=== PATIENT | male | born 1985 ===

== ENCOUNTER 2018-04-18 13:54 | Emergency (ER) | payer MEDICAID, OTHER ==
[2018-04-18 13:57] VITALS: BMI 33.4
[2018-04-18 13:58] VITALS: BP 124/79; PULSE 79; RESP 20; TEMP 98.7; O2SAT 99
--- NOTE | 2018-04-18 14:38 | ED PDOC ---
Upper Extremity Pain/Injury Time Seen by Provider: 04/18/18 14:06 Chief Complaint (Nursing): Trauma Chief Complaint (Provider): finger injury History Per: Patient History/Exam Limitations: no limitations Onset/Duration Of Symptoms: Mins Current Symptoms Are (Timing): Still Present Additional Complaint(s): 32 y/o right hand dominant male presents to ED with crush injury to right index finger. Patient accidentally slammed trunk door on his finger about 1 hour prior to arrival. He sustained minor lacerations to finger and has throbbing pain. No numbness or tingling to affected area. Patient not sure of last tetanus. PMD: None Past Medical History Reviewed: Historical Data, Nursing Documentation, Vital Signs Vital Signs: Last Vital Signs Temp 98.7 F 04/18/18 13:56 Pulse 79 04/18/18 13:56 Resp 20 04/18/18 13:56 BP 124/79 04/18/18 13:56 Pulse Ox 99 04/18/18 13:56 - Medical History PMH: No Chronic Diseases - Surgical History Surgical History: No Surg Hx - Family History Family History: States: No Known Family Hx - Living Arrangements Living Arrangements: With Family - Social History Current smoker - smoking cessation education provided: No Alcohol: None Drugs: Denies - Immunization History Hx Tetanus Toxoid Vaccination: No (not sure of last booster) - Home Medications Home Medications: Ambulatory Orders Medication Instructions Recorded Cyclobenzaprine [Cyclobenzaprine 10 mg PO TID #30 tab 03/01/16 HCl] Ibuprofen [Motrin Ib] 800 mg PO Q6 PRN 03/01/16 Ibuprofen [Motrin Tab] 800 mg PO BID #30 tab 03/01/16 traMADol [Ultram] 50 mg PO Q8 #20 tab 03/01/16 Cephalexin [Keflex] 500 mg PO TID #21 capsule 04/18/18 Ibuprofen [Motrin] 600 mg PO Q6 PRN #15 tab 04/18/18 - Allergies Allergies/Adverse Reactions: Allergies Allergy/AdvReac Type Severity Reaction Status Date / Time No Known Allergies Allergy Verified 03/01/16 19:20 Review of Systems ROS Statement: Except As Marked, All Systems Reviewed And Found Negative Musculoskeletal: Positive for: Hand Pain (right index finger laceration ) Physical Exam - Reviewed Nursing Documentation Reviewed: Yes Vital Signs Reviewed: Yes - Physical Exam Appears: Positive for: Well, Non-toxic, No Acute Distress Head Exam: Positive for: ATRAUMATIC Skin: Positive for: Normal Color. Negative for: Rash Eye Exam: Positive for: Normal appearance Neck: Positive for: Normal Cardiovascular/Chest: Positive for: Regular Rate, Rhythm Respiratory: Positive for: Normal Breath Sounds. Negative for: Accessory Muscle Use, Respiratory Distress Extremity: Positive for: Normal ROM (Full ROM of affected digit), Other ( Superficial lacerations to the dorsal and palmar aspects of right index finger with no active bleeding. Subungual hematoma noted to 25% fingernail. no lifting of fingernail noted) Neurologic/Psych: Positive for: Alert, Oriented. Negative for: Motor/Sensory Deficits - ECG O2 Sat by Pulse Oximetry: 99 (RA) Pulse Ox Interpretation: Normal - Other Rad Right hand x-ray X-Ray: Interpreted by Me, Viewed By Me X-Ray Interpretation: no fx, no dis Medical Decision Making Medical Decision Making: Time: 1435 Impression: Crush injury to right index finger Plan: -- Adacel (10-64 yrs) 0.5 ml IM -- Motrin 600 mg PO -- Hand Right 3 Views Patient aware of x-ray results. All questions answered. Lacerations are very superficial, no sutures indicated. Wounds were cleansed with normal saline and Betadine, bacitracin gauze wrap applied. Patient given prescriptions for Keflex and Motrin and was advised to follow-up with hand specialist, referral given Scribe Attestation: Documented by Carlos Klein, acting as a scribe for Destiny Pineda PA-C. Provider Scribe Attestation: All medical record entries made by the Scribe were at my direction and personally dictated by me. I have reviewed the chart and agree that the record accurately reflects my personal performance of the history, physical exam, medical decision making, and the department course for this patient. I have also personally directed, reviewed, and agree with the discharge instructions and disposition. Disposition - Clinical Impression Clinical Impression: Crush injury to finger, Requires a booster tetanus - Patient ED Disposition Is Patient to be Admitted: No Counseled Patient/Family Regarding: Studies Performed, Diagnosis, Need For Followup, Rx Given - Disposition Referrals: Real Basilio MD [Medical Doctor] - Disposition: Routine/Home Disposition Time: 15:56 Condition: STABLE Additional Instructions: Ice, rest and elevate affected area. Take prescription meds as directed. Follow- up with hand specialist for any persistent symptoms. Prescriptions: Cephalexin [Keflex] 500 mg PO TID #21 capsule Ibuprofen [Motrin] 600 mg PO Q6 PRN #15 tab PRN Reason: Pain, Moderate (4-7) Instructions: Crush Injury, Diphtheria and Tetanus Toxoids, and Acellular Pertussis Vaccine Forms: [employer] (Polish), [facility] ED School/Work Excuse
[2018-04-18] MEDS ORDERED: Tdap Vaccine 0.5 ml Vial (10-64 yrs) IM ONE (14:47)
[2018-04-18] MEDS: Tdap Vaccine 0.5 ml Vial (10-64 yrs) IM ONE (14:50)
--- NOTE | 2018-04-18 15:41 | RAD ---
PROCEDURE: Right Hand Radiographs. HISTORY: trauma, attn index finger COMPARISON: None. FINDINGS: BONES: Normal. No fracture. JOINTS: Normal. No osteoarthritic changes. SOFT TISSUES: Soft tissue swelling. No visulaized radiopaque/visualized foreign body. OTHER FINDINGS: None. IMPRESSION: Soft tissue swelling without acute articular or osseous abnormality.
== END 2018-04-18 16:06 | disposition home or self-care (01) ==
LOC: H.ER 13:54
DX: S67.190A Crushing injury of right index finger, initial encounter (principal); W22.8XXA Striking against or struck by other objects, initial encounter; Y99.0 Civilian activity done for income or pay